=== PATIENT | male | born 1985 | race African-American/Black ===

== ENCOUNTER 2019-04-26 18:16 | Emergency (ER) | payer OTHER ==
[~2019-04-26] VITALS: Ht 185.4 cm; Wt 70.3 kg
--- NOTE | 2019-04-26 18:44 | NUR ---
[id number], picked up at the smoke shop, bizarre behavior. pt awake, pt on monitor, vss, nad noted, pending md donnelly
[2019-04-26 19:03] LABS: BASOPHILS # (AUTO) 0.1 /CMM (0.0-0.2); BASOPHILS % (AUTO) 1.6 % (0.0-2.0); EOSINOPHILS % (AUTO) 1.5 % (0.0-6.0); HEMATOCRIT 47 % (39-51); HEMOGLOBIN 15.2 g/dL (13.5-17.5); LYMPHOCYTES # (AUTO) 1.7 /CMM (0.8-4.8); LYMPHOCYTES % (AUTO) 19.5 % (20.0-44.0); MEAN CORPUSCULAR HGB CONC 33 g/dl (31.0-36.0); MEAN CORPUSCULAR VOLUME 92 fL (80-96); MONOCYTES # (AUTO) 0.6 /CMM (0.1-1.30); MONOCYTES % (AUTO) 7.4 % (2.0-12.0); NEUTROPHILS # (AUTO) 6.1 /CMM (1.8-8.9); PLATELET COUNT (AUTO) 241 /CMM (150-450); RED BLOOD CELL COUNT(AUTO) 5.06 MIL/uL (4.5-6.0); WHITE BLOOD COUNT (AUTO) 8.7 K/uL (4.3-11.0)
[2019-04-26 19:11] LABS: CALCIUM, SERUM 9.2 mg/dL (8.5-10.1); CARBON DIOXIDE 29 mmol/L (21-32); CHLORIDE 103 mmol/L (98-107); CREATININE 1.3 mg/dL (0.6-1.3); GLUCOSE 97 mg/dL (74-106); POTASSIUM 3.9 mmol/L (3.5-5.1); SODIUM SERUM 140 mmol/L (136-145); UREA NITROGEN, BLOOD 13 mg/dL (7-18)
[2019-04-26 19:16] LABS: ALANINE AMINOTRANSFERASE 30 U/L (12-78); ALCOHOL, BLOOD < 3 mg/dL (0-0); ALKALINE PHOSPHATASE 55 U/L (46-116); ASPARTATE AMINOTRANSFERASE 29 U/L (15-37); BILIRUBIN,DIRECT 0.2 mg/dL (0.0-0.2); BILIRUBIN,TOTAL 0.6 mg/dL (0.2-1.0); SALICYLATE 2.8 mg/dL (2.8-20.0); TOTAL PROTEIN, SERUM 7.4 g/dL (6.4-8.2)
[2019-04-26 19:17] LABS: ACETAMINOPHEN < 2 ug/ml (10-30)
[2019-04-26 19:32] LABS: APPEARANCE,URINE Clear (CLEAR); BILIRUBIN,URINE Negative (NEGATIVE); BLOOD, URINE Negative Ery/uL (NEGATIVE); COLOR,URINE Yellow (YELLOW); KETONES,URINE Negative (NEGATIVE); LEUKOCYTE ESTERASE ,URINE Negative (NEGATIVE); NITRITE, URINE Negative (NEGATIVE); PROTEIN,URINE Negative (NEGATIVE); UGLUCOSE Negative (NEGATIVE); UROBILINOGEN,URINE 0.2 EU/dL (0.2)
--- NOTE | 2019-04-26 19:33 | NUR ---
urine collected and sent to lab
[2019-04-26] MEDS: IV NS 0.9% 1,000 ML BAG IV ONE (20:16)
[2019-04-26] MEDS ORDERED: OLANZAPINE 5 MG TABLET ONE (21:06)
[2019-04-26] MEDS: OLANZAPINE 5 MG TABLET PO ONE (21:10)
--- NOTE | 2019-04-27 00:44 | NUR ---
Patient is resting comfortably in bed with eyes closed. Easily aroused. VSS.
--- NOTE | 2019-04-27 10:30 | NUR ---
Social service consult requested by ED DAIN León for drug use. Per ED MD, Pt. is a 33 year old male who was brought to [facility] ED by EMS yesterday evening for bizarre behavior. Per EMS, patient was found at a smoke shop and was said to be acting bizarre. EMS states the patient appeared to be under the influence of methamphetamines. DIRECTOR OF MARKET ANALYSIS met with the pt. this morning. Pt. is alert and oriented x 4. Pt. states he lives in [facility], however when DIRECTOR OF MARKET ANALYSIS asks for the address, pt. states, " I don't know it." Pt. is denying being homeless. Pt. initially denied any psychiatric illnesses, however did admit later to having diagnosis of Bipolar and Schizophrenia. Pt. is currently denying any suicidal and homicidal ideations and visual/auditory hallucinations. Pt is non-complaint with his psychiatric medications. Pt is methamphetamine user and last used yesterday. Pt denies alcohol and cigarette use. DIRECTOR OF MARKET ANALYSIS provided pt with active listening and supportive counseling. Pt. was provided with the following resources: [facility] [id number] [place] [facility]-Term Program List, [facility] located at [address]. ; [facility] [place], [address], [place] ; [facility] [place], [address] [facility] ; [facility] Homeless Resource Directory which includes food stamps, transitional housing, showers and hot meals etc; Mental Health clinics such as [facility] ; [facility] ; Health clinics;[facility] and Alcohol treatment centers such as [facility], ; [facility] Substance Abuse Hotline and [facility] . Pt. was provided with a sandwich and a TAP card. No other social service needs are requested at this time. DIRECTOR OF MARKET ANALYSIS updated and DAIN León regarding pt's disposition.
[2019-04-27 10:49] VITALS: BP 116/81
--- NOTE | 2019-04-27 10:50 | NUR ---
Patient given written and verbal discharge instructions. Patient verbalizes understanding of instructions. Patient is ambulatory with steady gait. Refuses offer of prison placement. Patient given list of available shelters in surrounding area. Tap card and food provided, left in stable condition. signed waiver with social service.
== END 2019-04-27 10:50 | disposition home or self-care (01) ==
LOC: ER 18:22
DX: F29 Unspecified psychosis not due to a substance or known physiological condition (principal); F19.10 Other psychoactive substance abuse, uncomplicated; F31.9 Bipolar disorder, unspecified; F20.9 Schizophrenia, unspecified; F12.10 Cannabis abuse, uncomplicated
CPT/HCPCS: 36415; 80048; 80076; 80305; 80307; 80329; 81001; 85025; 99284; G0480; J7030; 81000-TC